=== PATIENT | female | born 1990 | race Caucasian/White ===

== ENCOUNTER 2024-01-03 12:43 | Outpatient (CLI) | payer OTHER, SELFPAY ==
[2024-01-03 18:09] LABS: Hematocrit 43.8 % (37.0-47.0); Hemoglobin 14.3 g/dL (12.0-15.0); Mean Corpuscular HGB Conc 32.6 g/dl (32-36); Mean Corpuscular Hemoglobin 27.8 pg (26-34); Mean Platelet Volume 10.5 fl (7.4-10.4); Platelet Count Result 223 k/mm3 (150-375); Red Blood Count 5.15 M/mm3 (4.2-5.4); Red Cell Distribution Width 12.4 % (11.5-14.5); White Blood Count 5.7 K/mm3 (4.5-10.0)
[2024-01-03 18:33] LABS: Alanine Aminotransferase 42 U/L (6-35); Albumin Level 4.5 g/dL (3.5-5.1); Alkaline Phosphatase 46 U/L (38-126); Anion Gap 8 mmol/L (4-12); Aspartate Amino Transferase 45 U/L (14-36); Bilirubin,Total 0.6 mg/dL (0.2-1.3); Blood Urea Nitrogen 9 mg/dL (7-17); Calcium 9.3 mg/dL (8.4-10.2); Carbon Dioxide 26 mmol/L (22-30); Chloride 105 mmol/L (98-107); Cholesterol 169 mg/dL (0-200); Estimated Glomerular Filt Rate > 60; Glucose 74 mg/dL (65-110); HDL Direct 53 mg/dL; Potassium 4.8 mmol/L (3.4-5.0); Sodium 139 mmol/L (137-145); Triglycerides 98 mg/dL (<150)
[2024-01-03 18:45] LABS: LDL Cholesterol Direct 102 mg/dL
[2024-01-06 18:53] LABS: Vitamin D 1,25 (OH)2 Total 68 pg/mL (18-72); Vitamin D2 1,25 (OH)2 <8 pg/mL; Vitamin D3 1,25 (OH)2 68 pg/mL
== END 2024-01-03 12:44 | disposition home or self-care (01) ==
LOC: ANHGOSHLAB 12:44
PROVIDERS: PCP Family Medicine; Visit Provider Family Medicine
DX: E55.9 Vitamin D deficiency, unspecified (principal); E66.3 Overweight; F41.9 Anxiety disorder, unspecified; Z79.899 Other long term (current) drug therapy
CPT/HCPCS: 36415; 80053; 80061; 82652; 84443; 85027

== ENCOUNTER 2024-02-01 14:32 | Outpatient (CLI) | payer OTHER, SELFPAY ==
--- NOTE | ~2024-02-01 | XR_ITS ---
EXAMINATION: XR thoracic spine 3V, XR lumbar spine min 4V, XR sacrum coccyx min 2V DATE: 02/01/2024 15:05 INDICATION: Cervicalgia TECHNIQUE: 1. AP, lateral, lateral flexion, lateral extension, lateral swimmers and odontoid views of the cervic al spine are provided. 2. AP, lateral and lateral swimmer's views of the thoracic spine were obtained. 3. AP, lateral, left and right oblique and coned-down lateral lumbosacral views of the lumbar spine w ere obtained. 4. AP sacral, AP coccygeal and lateral sacrococcygeal views of the sacrum and coccyx were obtained. COMPARISON: None FINDINGS: Cervical spine: Straightening of the normal cervical lordosis with normal motion on flexion and extension. Odontoid i s intact. Normal atlantoaxial interval. Vertebral body heights are normal. Disc spaces are normal. Prevertebral soft tissues are normal. Thoracic spine: 5 degrees levocurvature between T1 and T4, for degree dextrocurvature between T4 and T7 and 7 degrees levocurvature between T7 and T12. Alignment is normal. Vertebral body heights are normal. Mild disc height loss at a few levels in the mid thoracic spine. Visualized portion of lungs are clear. No pleu ral effusion or pneumothorax. Cardiomediastinal silhouette is normal. Lumbar spine: 5 degrees thoracolumbar dextrocurvature between T12 and L2. Sagittal alignment is normal. Vertebral b gerson and disc heights are normal. No pars interarticularis defects. Multilevel mild bilateral lumbar f acet osteoarthritis. There are few tiny 1-2 mm densities projecting over the right kidney and 1 proje cting over the mid left kidney suspicious for nephrolithiasis. Sacrum and coccyx: Sacral arches are intact. No fracture. Mild bilateral sacroiliac osteoarthritis. No erosions to sugge st inflammatory sacroiliitis. IMPRESSION: 1. Mild multifocal pneumonia S-shaped curvature of the thoracic and upper lumbar spine with mild thor acic spondylosis. 2. Likely bilateral nephrolithiasis. Reviewed, dictated and finalized at location A. IMPRESSION: 1. Mild multifocal pneumonia S-shaped curvature of the thoracic and upper lumba r spine with mild thoracic spondylosis. 2. Likely bilateral nephrolithiasis. IMPRESSION: 1. Mild multifocal pneumonia S-shaped curvature of the thoracic and upper lumba r spine with mild thoracic spondylosis. 2. Likely bilateral nephrolithiasis.
--- NOTE | ~2024-02-01 | XR_ITS ---
EXAMINATION:XR cervical spine min 6V DATE: 02/01/2024 15:05 INDICATION: Cervicalgia TECHNIQUE: 1. AP, lateral, lateral flexion, lateral extension, lateral swimmers and odontoid views of the cervic al spine are provided. 2. AP, lateral and lateral swimmer's views of the thoracic spine were obtained. 3. AP, lateral, left and right oblique and coned-down lateral lumbosacral views of the lumbar spine w ere obtained. 4. AP sacral, AP coccygeal and lateral sacrococcygeal views of the sacrum and coccyx were obtained. COMPARISON: None FINDINGS: Cervical spine: Straightening of the normal cervical lordosis with normal motion on flexion and extension. Odontoid i s intact. Normal atlantoaxial interval. Vertebral body heights are normal. Disc spaces are normal. Prevertebral soft tissues are normal. Thoracic spine: 5 degrees levocurvature between T1 and T4, for degree dextrocurvature between T4 and T7 and 7 degrees levocurvature between T7 and T12. Alignment is normal. Vertebral body heights are normal. Mild disc height loss at a few levels in the mid thoracic spine. Visualized portion of lungs are clear. No pleu ral effusion or pneumothorax. Cardiomediastinal silhouette is normal. Lumbar spine: 5 degrees thoracolumbar dextrocurvature between T12 and L2. Sagittal alignment is normal. Vertebral b gerson and disc heights are normal. No pars interarticularis defects. Multilevel mild bilateral lumbar f acet osteoarthritis. There are few tiny 1-2 mm densities projecting over the right kidney and 1 proje cting over the mid left kidney suspicious for nephrolithiasis. Sacrum and coccyx: Sacral arches are intact. No fracture. Mild bilateral sacroiliac osteoarthritis. No erosions to sugge st inflammatory sacroiliitis. IMPRESSION: 1. Mild multifocal pneumonia S-shaped curvature of the thoracic and upper lumbar spine with mild thor acic spondylosis. 2. Likely bilateral nephrolithiasis. Reviewed, dictated and finalized at location A. IMPRESSION: 1. Mild multifocal pneumonia S-shaped curvature of the thoracic and upper lumba r spine with mild thoracic spondylosis. 2. Likely bilateral nephrolithiasis.
== END 2024-02-01 14:33 | disposition home or self-care (01) ==
PROVIDERS: PCP Family Medicine; Visit Provider Family Medicine
DX: M54.2 Cervicalgia (principal); M54.6 Pain in thoracic spine; M54.50 Low back pain, unspecified; M53.3 Sacrococcygeal disorders, not elsewhere classified; J18.9 Pneumonia, unspecified organism
CPT/HCPCS: 72052; 72072; 72110; 72220

== ENCOUNTER 2024-05-07 08:00 | Outpatient (RCR) | payer BC, SELFPAY ==
--- NOTE | 2024-04-25 14:37 | OPREHPOC ---
Outpatient Therapy Plan of Care This is a Multidisciplinary Plan of Care that may contain components documented by all disciplines (PT, OT, and ST.) PT Problem 1 PT Problem #1 Knowledge Deficit PT Goal 1 Goal / Goal Update Pt to be IND with issued HEP Target Visit 8 PT Problem 2 PT Problem #2 Pain PT Goal 1 Goal / Goal Update 1. Pt to report pain no greater than 3/10 in the last week. 2. Pt to report 75% improvement in overall symptoms. 3. Pt to report being able to sit for 2 hours at a time to improve her work day PT Problem 3 PT Problem #3 Impaired Range of Motion PT Goal 1 Goal / Goal Update 1. 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 2. Pt to improve mickey shoulder flexion ROM to 150 deg to be able to do her own hair. Target Visit 10
--- NOTE | 2024-04-25 14:37 | PTOPEVAL1 ---
Assessment and note entered by Belem Johnston, PT, DPT Evaluation Information Assessment Status Evaluation Diagnosis cervical pain ICD-10 Condition Codes (PT) Cervicalgia M54.2,M54.6,Pain in low back M54.50 Onset 6 months Subjective Information Reports pain in the base of her skull, down her neck, and into her upper lower back. Pt reports no ERIC, states pain starting early October. States she was gone for training for 5 months and some times along that she started to get pain in her upper back. States she initially throughout she pulled something so did not get it checked out . For the following weeks after that it continued to increase in severity and has now leveled out. Her pain in constant, sitting and standing makes it worse, laying lessens it but it still never goes away. Cannot sit or stand longer than 30 mins without it feeling like her back is on fire. States she has attempted pain medication but it does not help so she quit taking in. Declines any headaches, N/T or weakness in hands. 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 Reported Pain Level Pain Score 6: Self Report Assessment PT Clinical Summary Pt presents to therapy today for her initial evaluation with a diagnosis of cervical, thoracic, and lumbar pain. Today she demonstrates significant tenderness to palpation with thoracic PA mobilizations specifically ~T4. She has notable muscle guarding in her upper thoracic spine. She has limited cervical and shoulder ROM, limited strength, decreased functional mobility, and decreased sitting tolerances all secondary to pain . Skilled physical therapy services are indicated to address the deficits noted above, to manage pain, to improved mobility, and to return to prior level of function. Plan of Care Interventions Electrical Stimulation,Gait Training,Hot Pack/Cold Pack,Manual Therapy,Neuro Re-education,Patient/ Caregiver Educati,Therapeutic Activities, Therapeutic Exercise PT Services Indicated Yes Treatment Frequency and 2x/wk for 8 visits Duration These treatments will address the objective and functional deficits as defined above. The patient will be advanced safely and appropriately in order for the patient to progress towards his/her prior level of function. Additional exercises will be introduced and as well as a comprehensive home exercise program upon discharge, if needed, ?to ensure carryover of functional gains achieved in the clinic. This treatment plan has been reviewed and agreement upon by the patient.
--- NOTE | 2024-04-26 08:23 | PCPTNOTE ---
Patient called & cancelled scheduled appointment this date due to getting called into work.
--- NOTE | 2024-05-09 08:03 | PCPTNOTE ---
Patient called to cancel due to work schedule changing.
--- NOTE | 2024-05-14 09:07 | PCPTNOTE ---
Patient called & cancelled scheduled appointment this date due to being ill.
--- NOTE | 2024-05-21 08:11 | PCPTNOTE ---
Patient called & cancelled scheduled appointment this date, at the time of her appointment, did not give a reason why. Called and LVM with follow up instructions.
--- NOTE | 2024-06-19 13:45 | PTOPDC ---
Assessment and note entered by Belem Johnston, PT, DPT Evaluation Information Assessment Status Discharge - Pt Not Present Diagnosis cervical pain ICD-10 Condition Codes (PT) Cervicalgia M54.2,Pain in Thoracic Spine M54.6, Pain in low back M54.50 Onset 6 months Subjective Information Called and cancelled appointment on 05/21/24, left voicemail with follow up instructions. Have no heard from her since. Discharge d/t lack of attendance. Assessment PT Clinical Summary Pt completed 3 visits of skilled therapy between 04/25/24 and 05/21/24.
== END 2024-06-21 08:31 | disposition home or self-care (01) ==
LOC: ANHGOSHPT 08:00
PROVIDERS: PCP Family Medicine; Visit Provider Family Medicine
DX: M54.50 Low back pain, unspecified (principal); M53.3 Sacrococcygeal disorders, not elsewhere classified; M54.6 Pain in thoracic spine; M47.9 Spondylosis, unspecified; Z13.828 Encounter for screening for other musculoskeletal disorder
CPT/HCPCS: 97014; 97110; 97140; 97161; G0283